=== PATIENT | female | born 1930 | race African-American/Black ===

== ENCOUNTER → 2016-11-25 | Outpatient (CLI) | payer MEDICARE, OTHER, BC ==
[2016-11-25 19:51] LABS: URINE CREATININE 61.4 mg/dL (15-278)
[2016-11-25 19:53] LABS: CREATININE 1.14 mg/dL (0.52-1.25)
== END ==
LOC: OD 16:48
PROVIDERS: ATTEND Internal Medicine Geriatric Medicine
DX: N18.3 Chronic kidney disease, stage 3 (moderate) (principal)
CPT/HCPCS: 36415; 82575